=== PATIENT | female | born 1990 | race Caucasian/White ===

== ENCOUNTER 2024-03-22 06:43 | Emergency (ER) | payer OTHER ==
[2024-03-22] MEDS ORDERED: Ketorolac Tromethamine 30 MG (1 mL) VIAL ONE (07:14)
[2024-03-22] MEDS ORDERED: Diazepam 10 MG/2 ML SYRINGE ONE (07:18)
[2024-03-22] MEDS ORDERED: Dexamethasone 10 MG/ML VIAL ONE (08:21)
== END 2024-03-22 08:28 | disposition home or self-care (01) ==
LOC: ERS 06:43
DX: M50.123 Cervical disc disorder at C6-C7 level with radiculopathy (principal)
CPT/HCPCS: 72125; 72128; 96374; 96375; J1100; J1885; J3360